=== PATIENT | female | born 1990 | race Caucasian/White ===

== ENCOUNTER 2016-05-24 11:25 | Emergency (ER) | payer BC, OTHER ==
--- NOTE | 2016-05-24 14:47 | ED ---
Psych HPI - General Chief Complaint: Psychiatric Symptoms Stated Complaint: suicidal Time Seen by Provider: 05/24/16 11:28 Source: patient, EMS Mode of arrival: EMS - History of Present Illness Initial Comments: This patient is a 26-year-old woman who is brought in to be evaluated after she made some suicidal statements at home. The patient states that she was having a relationship problem with her , who had just told her that she was ending their relationship. The patient then poured some of her pills on the floor and put through the tablets in her mouth. She subsequent spit them out, but her was concerned and phoned 911 and the patient was brought here. The patient does state that this was an impulsive decision. She denies suicidal ideation now. MD Complaint: suicidal ideation -: minutes(s) Associated Psychiatric Symptoms: suicidal ideation History of same: No Quality: resolved prior to arrival Improves With: none Worsens With: none Context: significant life stressor Associated Symptoms: denies other symptoms - Related Data Home Medications Medication Instructions Recorded Confirmed ALPRAZolam [Xanax] 0.5 mg PO QID 05/24/16 05/24/16 Dextroamphetamine/Amphetamine 30 mg PO QAM 05/24/16 05/24/16 [Adderall Xr] Diclofenac Sodium [Voltaren] 75 mg PO BID PRN 05/24/16 05/24/16 Ibuprofen [Motrin] 800 mg PO TID PRN 05/24/16 05/24/16 traZODone HCL 100 mg PO HS 05/24/16 05/24/16 Allergies Allergy/AdvReac Type Severity Reaction Status Date / Time No Known Allergies Allergy Verified 05/24/16 12:25 Review of Systems ROS Statement: Those systems with pertinent positive or pertinent negative responses have been documented in the HPI. ROS Other: All systems not noted in ROS Statement are negative. Constitutional: Denies: fever, chills Respiratory: Denies: cough, dyspnea Cardiovascular: Denies: chest pain, syncope Gastrointestinal: Denies: abdominal pain, vomiting, diarrhea Genitourinary: Denies: dysuria Musculoskeletal: Denies: back pain Skin: Denies: rash Neurological: Denies: headache Psychiatric: Reports: anxiety, suicidal thoughts. Denies: depression, auditory hallucinations, visual hallucinations, homicidal thoughts Past Medical History Past Medical History: No Reported History History of Any Multi-Drug Resistant Organisms: None Reported Past Surgical History: No Surgical Hx Reported Past Psychological History: ADD/ADHD, Anxiety, Depression Smoking Status: Never smoker Past Alcohol Use History: Occasional Past Drug Use History: None Reported General Exam Limitations: no limitations General appearance: alert, in no apparent distress Head exam: Present: atraumatic, normocephalic Eye exam: Present: normal appearance Respiratory exam: Present: normal lung sounds bilaterally. Absent: respiratory distress, wheezes, rales, rhonchi, stridor Cardiovascular Exam: Present: regular rate, normal rhythm, normal heart sounds. Absent: systolic murmur, diastolic murmur, rubs, gallop GI/Abdominal exam: Present: soft. Absent: tenderness, guarding, rebound Neurological exam: Present: alert, normal gait Psychiatric exam: Present: normal affect, normal mood. Absent: depressed, agitated, anxious, flat affect, manic, homicidal ideation, suicidal ideation Skin exam: Present: warm, dry, intact, normal color. Absent: rash Course Vital Signs 05/24/16 05/24/16 05/24/16 11:27 14:50 14:56 Temperature 97.9 F 98.0 F Pulse Rate 93 86 Respiratory 18 16 Rate Blood Pressure 112/65 110/62 O2 Sat by Pulse 98 98 Oximetry Medical Decision Making - Lab Data Lab Results 05/24/16 Range/Units 14:15 Urine Opiates Screen Not Detected (NotDetected) Ur Oxycodone Screen Not Detected (NotDetected) Urine Methadone Screen Not Detected (NotDetected) Ur Propoxyphene Screen Not Detected (NotDetected) Ur Barbiturates Screen Not Detected (NotDetected) U Tricyclic Antidepress Not Detected (NotDetected) Ur Phencyclidine Scrn Not Detected (NotDetected) Ur Amphetamines Screen Detected H (NotDetected) U Methamphetamines Scrn Not Detected (NotDetected) U Benzodiazepines Scrn Detected H (NotDetected) Urine Cocaine Screen Not Detected (NotDetected) U Marijuana (THC) Screen Not Detected (NotDetected) Disposition Clinical Impression: Adjustment reaction Disposition: HOME SELF-CARE Condition: Fair Instructions: Suicide Prevention for Adults (ED), Mood Disorders (ED) Referrals: Clinton Batres MD [Primary Care Provider] - 1-2 days
[2016-05-24 14:50] VITALS: BP 110/62; PULSE 86; RESP 16
[2016-05-24 14:58] VITALS: TEMP 98
== END 2016-05-24 14:56 | disposition home or self-care (01) ==
LOC: EC 11:25
DX: F43.23 Adjustment disorder with mixed anxiety and depressed mood (principal); F90.9 Attention-deficit hyperactivity disorder, unspecified type; Z79.899 Other long term (current) drug therapy
CPT/HCPCS: 80306; 82075; 99284

== ENCOUNTER → 2017-11-19 | Outpatient (CLI) | payer OTHER ==
--- NOTE | 2017-11-19 13:44 | XR ---
EXAMINATION TYPE: XR shoulder complete RT DATE OF EXAM: 11/19/2017 CLINICAL HISTORY: Right shoulder pain for 2 weeks TECHNIQUE: Three views of the right shoulder are obtained. COMPARISON: None. FINDINGS: There is no acute fracture/dislocation evident in the right shoulder. The acromioclavicul ar and glenohumeral joint spaces appear within normal limits on the internal rotation view, however o n the frontal view there is slight elevation of the distal clavicle with respect to the acromion sugg estive of acromioclavicular ligament injury. The visualized ribs are intact and unremarkable. IMPRESSION: There is no acute fracture or dislocation in the right shoulder. However there is elevat ion of the clavicle with respect to the acromion suggestive of acromioclavicular injury without disas sociation/complete tear.
== END | disposition home or self-care (01) ==
LOC: RADXRMAIN 12:52
PROVIDERS: ATTEND Emergency Medicine
DX: R93.7 Abnormal findings on diagnostic imaging of other parts of musculoskeletal system (principal)

== ENCOUNTER → 2017-12-28 | Outpatient (CLI) | payer BC, OTHER ==
--- NOTE | 2017-12-28 20:57 | MR ---
EXAMINATION TYPE: MR shoulder RT wo con DATE OF EXAM: 12/28/2017 COMPARISON: Shoulder x-ray November 19, 2014 HISTORY: Limited ROM, Pain entire Right shoulder for some time, strain injury. TECHNIQUE: Multiplanar, multisequence imaging of the right shoulder is performed without contrast. FINDINGS: Rotator Cuff: Distal supraspinatus and infraspinatus tendons are intact to the humeral head attachmen t. Rotator cuff muscle bulk is preserved. Subscapularis tendon is intact. Acromioclavicular Joint: AC joint is maintained. Distal acromion morphology is unremarkable. Glenohumeral Joint: There is small to moderate glenohumeral joint effusion. No significant spurring i s noted. Labrum: The labrum appears grossly intact given limitation of non-arthrogram study. Biceps Tendon: The long head of biceps is in normal location within bicipital groove. Bone marrow signal: No focal abnormal marrow signal is appreciated. Other: Increased fluid signal subdeltoid/subacromial bursa is noted suggestive of mild bursitis. IMPRESSION: No rotator cuff or labral tear is seen.
== END ==
LOC: RADMRIMAIN 19:49
PROVIDERS: ATTEND Emergency Medicine
DX: S43.401D Unspecified sprain of right shoulder joint, subsequent encounter (principal)